=== PATIENT | female | born 2000 | race African-American/Black ===

== ENCOUNTER 2019-09-02 10:44 | Emergency (ER) | payer OTHER ==
[~2019-09-02] VITALS: Ht 157.5 cm; Wt 75.0 kg
[2019-09-02 13:02] VITALS: BP 120/66
== END 2019-09-02 13:04 | disposition home or self-care (01) ==
LOC: ER 10:44
DX: H65.01 Acute serous otitis media, right ear (principal); R09.81 Nasal congestion; R05 Cough
CPT/HCPCS: 99282

== ENCOUNTER 2020-03-28 00:49 | Observation (INO) | payer MEDICAID, OTHER ==
[~2020-03-28] VITALS: Ht 160 cm; Wt 88.5 kg
[2020-03-28] MEDS ORDERED: ACETAMINOPHEN 500MG TABLET PO ONE (02:15)
[2020-03-28] MEDS ORDERED: LACTATED RINGERS 1,000 ML IV SCH (02:15)
[2020-03-28] MEDS ORDERED: CEFAZOLIN 2,000 MG in DEXT 5% WATER 100 ML IV SCH (03:00)
[2020-03-28] MEDS ORDERED: PREN-118 MT (03:53)
[2020-03-28] MEDS ORDERED: CEPH-569 MT (03:54)
== END 2020-03-28 04:10 | disposition home or self-care (01) ==
LOC: 8 EST LDRP 00:49
PROVIDERS: ADMIT Obstetrics & Gynecology; ATTEND Obstetrics & Gynecology
DX: O26.892 Other specified pregnancy related conditions, second trimester (principal); R10.9 Unspecified abdominal pain; Z3A.25 25 weeks gestation of pregnancy
CPT/HCPCS: 96365; 99281; G0378; J0690; J7060; 96361